=== PATIENT | female | born 1975 | race Caucasian/White ===

== ENCOUNTER 2016-03-25 13:34 | Emergency (ER) | payer OTHER ==
[~2016-03-25] VITALS: Ht 170.2 cm; Wt 72.3 kg
[~2016-03-25 13:34] MED LIST: AMBIZINE25 MG PO; AMOXICILLIN500 MG PO; ATHENOL325 MG PO; AUGMENTIN875 MG PO; BACTRIM,SEPT1 TABLET PO; BENADRYL50 MG PO; CARAFATE100 MG/ML PO; EPIPEN ADU0.3 MG/0.3 IM; FLEXERIL10 MG PO; FLEXERIL5 MG PO; GABAPENTIN300 MG PO; HYDROCODON-ACE1 EAC7 PO; IBUPROFEN600 MG PO; INDERAL10 MG PO; MOBIC7.5 MG PO; MOTRIN600 MG PO; NAPROSYN500 MG PO; NAPROXEN500 MG PO; PANTOPRAZOLE SO40 MG PO; PEPCID20 MG PO; PERCOCET 5/31 TABLET PO; PREDNISONE50 MG PO; PROZAC40 MG PO; TOPIRAMATE25 MG PO; TRAMADOL HCL50 MG PO; ULTRAM50 MG PO; VYVANSE20 MG PO; VYVANSE40 MG PO; XANAX0.25 MG PO; ZANTAC150 MG PO; ZOFRAN ODT4 MG PO; ZOFRAN ODT8 MG PO; ZOFRAN4 MG PO
[2016-03-25 14:31] LABS: ADD MIUA? YES; BILIRUBIN NEGATIVE; BLOOD SMALL; COLOR YELLOW ((YELLOW)); GLUCOSE (STRIP) NEGATIVE; KETONES 20; LEUKOCYTES SMALL; NITRITE NEGATIVE; PROTEIN (STRIP) NEGATIVE; SPECIFIC GRAVITY 1.014 (1.000-1.030); UROBILINOGEN 0.2 MG/DL (0.2-1.0)
[2016-03-25 14:41] LABS: BACTERIA RARE /HPF; EPITHELIAL CELLS 1+ /HPF; MUCUS 1+ /LPF; RED BLOOD CELLS 0-5 /HPF (0-5); UCUL ADDED? NO; WHITE BLOOD CELLS 0-5 /HPF (0-5)
[2016-03-25 14:43] LABS: HEMATOCRIT 42.5 % (36.0-46.0); MCH 26.8 PG (29.0-34.0); MCHC 34.1 G/DL (30.0-36.0); MCV 78.4 FL (83-99); MEAN PLAT.VOLUME 9.5 uM^3 (9.5-12.4); PLATELET COUNT 475 K/uL (156-360); RBC DIS.WIDTH-CV 13.8 % (11.8-14.6); RBC DIS.WIDTH-SD 38.8 % (39-53); RED BLOOD COUNT 5.42 M/uL (3.80-5.20); WHITE BLOOD COUNT 6.3 K/uL (4.1-10.2)
[2016-03-25 14:53] LABS: CHLORIDE 110 mEq/L (99-109); POTASSIUM 4.1 mEq/L (3.7-5.4); SODIUM 141 mEq/L (136-147)
[2016-03-25 14:55] LABS: GLUCOSE 97 mg/dL (70-99)
[2016-03-25 14:57] LABS: ANION GAP 8 MEQ/L (2-14); TOTAL BILIRUBIN 0.6 mg/dL (0.0-1.0)
[2016-03-25 14:59] LABS: ALKALINE PHOSPHATASE 89 IU/L (3-129); GFR ESTIMATE (CALCULATED) > 59 mL/min/
[2016-03-25 15:00] LABS: UREA NITROGEN (BUN) 6 mg/dL (9-23)
[2016-03-25 15:10] LABS: QUANTITATIVE HCG < 4.0 MIU/ML
[2016-03-25] MEDS ORDERED: ZOFRAN ODT4 MG PO (19:20)
[2016-03-25 19:28] VITALS: BP 120/69
== END 2016-03-25 19:30 | disposition home or self-care (01) ==
LOC: EME 13:34
DX: R10.32 Left lower quadrant pain (principal); K59.00 Constipation, unspecified
CPT/HCPCS: 74000; 80053; 81003; 84702; 85027; 99281; 99285; J1885; J2405; J7030

== ENCOUNTER 2016-10-26 10:04 | Observation (INO) | payer OTHER ==
[~2016-10-26] VITALS: Ht 170.2 cm; Wt 72.0 kg
[2016-10-26 10:53] LABS: HEMATOCRIT 42.2 % (36.0-46.0); MCH 26.4 PG (29.0-34.0); MCHC 31.8 G/DL (30.0-36.0); MCV 83.1 FL (83-99); MEAN PLAT.VOLUME 9.6 uM^3 (9.5-12.4); PLATELET COUNT 465 K/uL (156-360); RBC DIS.WIDTH-SD 42.5 % (39-53); RED BLOOD COUNT 5.08 M/uL (3.80-5.20); WHITE BLOOD COUNT 7.8 K/uL (4.1-10.2)
[2016-10-26 11:02] LABS: CHLORIDE 106 mEq/L (99-109); POTASSIUM 3.8 mEq/L (3.7-5.4); SODIUM 142 mEq/L (136-147)
[2016-10-26 11:04] LABS: GLUCOSE 92 mg/dL (70-99)
[2016-10-26 11:05] LABS: ANION GAP 12 MEQ/L (2-14)
[2016-10-26 11:08] LABS: GFR ESTIMATE (CALCULATED) > 59 mL/min/
[2016-10-26 11:09] LABS: UREA NITROGEN (BUN) 6 mg/dL (9-23)
[2016-10-26 11:14] LABS: TROP-I INTERPRETATION NEGATIVE; TROPONIN-I < 0.01 ng/mL (0.0-0.30)
[2016-10-26] MEDS ORDERED: VYVANSE10 MG PO (11:57)
[2016-10-26 13:16] LABS: HDL CHOLESTEROL 39 MG/DL (Desirable>=50); LDL CHOLESTEROL 133 mg/dL (Desirable<100); NON-HDL CHOLESTEROL 153 mg/dL (Desirable<160); TOTAL CHOLESTEROL 192 mg/dL (Desirable<200); TRIGLYCERIDES 100 MG/DL (Normal: <150)
[2016-10-26 13:21] VITALS: BP 131/79
[2016-10-26 13:55] LABS: TROP-I INTERPRETATION NEGATIVE; TROPONIN-I 0.02 ng/mL (0.0-0.30)
[2016-10-26 15:25] VITALS: BP 119/85
[2016-10-26 18:12] LABS: TROP-I INTERPRETATION NEGATIVE; TROPONIN-I 0.03 ng/mL (0.0-0.30)
[2016-10-26 21:00] VITALS: BP 108/59
[2016-10-26 23:13] VITALS: BP 120/68
[2016-10-27 03:28] VITALS: BP 110/76
[2016-10-27 06:05] LABS: MCH 26.4 PG (29.0-34.0); MCHC 31.5 G/DL (30.0-36.0); MCV 83.8 FL (83-99); MEAN PLAT.VOLUME 9.8 uM^3 (9.5-12.4); PLATELET COUNT 428 K/uL (156-360); RBC DIS.WIDTH-CV 14.2 % (11.8-14.6); RBC DIS.WIDTH-SD 43.8 % (39-53); RED BLOOD COUNT 4.89 M/uL (3.80-5.20)
[2016-10-27 06:28] LABS: ANION GAP 7 MEQ/L (2-14); CHLORIDE 109 MEQ/L (99-109); GFR ESTIMATE (CALCULATED) > 59 mL/min/; GLUCOSE 81 mg/dL (70-99); POTASSIUM 4.6 MEQ/L (3.7-5.4); SAMPLE HEMOLYSIS CHECK 0; SAMPLE ICTERIC CHECK 0; SAMPLE LIPEMIA CHECK 0; SODIUM 144 MEQ/L (136-147); UREA NITROGEN (BUN) 4 mg/dL (9-23)
[2016-10-27 08:45] VITALS: BP 122/76
[2016-10-27] MEDS ORDERED: ATORVASTATIN CA40 MG PO (10:37)
[2016-10-27] MEDS ORDERED: ASPIR-LOW81 MG PO (10:37)
[2016-10-27 11:38] VITALS: BP 118/69
== END 2016-10-27 15:08 | disposition home or self-care (01) ==
LOC: EME 10:04 → 5WEST 11:40 → EDOF 11:40 → ENRESERV 11:45 → 5WEST 12:36
PROVIDERS: Hospitalist; Physician Assistant Medical
DX: R07.2 Precordial pain (principal); R55 Syncope and collapse; G43.909 Migraine, unspecified, not intractable, without status migrainosus; F32.9 Major depressive disorder, single episode, unspecified; G89.29 Other chronic pain; Z82.49 Family history of ischemic heart disease and other diseases of the circulatory system
CPT/HCPCS: 70450; 71020; 71275; 80048; 80061; 84484; 85027; 93005; 99281; 99285; G0378; J2270; J7030